=== PATIENT | female | born 1975 | race Caucasian/White ===

== ENCOUNTER 2017-12-08 08:00 | Outpatient (CLI) | payer OTHER | END 2017-12-08 08:01 | disposition home or self-care (01) | LOC: LAB.R 08:00 | PROVIDERS: ATTEND Nurse Practitioner Obstetrics & Gynecology | DX: N89.8 Other specified noninflammatory disorders of vagina (principal) | CPT/HCPCS: 87480; 87510; 87660 ==

== ENCOUNTER 2017-12-29 08:00 | Outpatient (CLI) | payer OTHER | END 2017-12-29 08:01 | disposition home or self-care (01) | LOC: LAB.R 08:00 | PROVIDERS: ATTEND Nurse Practitioner Obstetrics & Gynecology | DX: N76.1 Subacute and chronic vaginitis (principal); N89.8 Other specified noninflammatory disorders of vagina | CPT/HCPCS: 87480; 87491; 87510; 87591; 87660 ==

== ENCOUNTER 2017-12-29 10:28 | Outpatient (CLI) | payer OTHER ==
[2017-12-29 12:08] LABS: HEMOGLOBIN A1C 0.49 g/dL; HEMOGLOBIN A1C % 5.1 % (4.6-6.2)
[2017-12-29 12:30] LABS: THYROID STIMULATING HORMONE 0.74 uIU/mL (0.34-5.60)
[2017-12-29 14:54] LABS: FREE T4 (FREE THYROXINE) 0.76 ng/dL (0.58-1.64)
[2017-12-31 12:26] LABS: THYROGLOBULIN 15.4 ng/mL
== END 2017-12-29 10:29 | disposition home or self-care (01) ==
LOC: LAB 10:28
PROVIDERS: ATTEND Nurse Practitioner Obstetrics & Gynecology
DX: N76.1 Subacute and chronic vaginitis (principal); N89.8 Other specified noninflammatory disorders of vagina; Z13.29 Encounter for screening for other suspected endocrine disorder
CPT/HCPCS: 36415; 81599; 83036; 83519; 84432; 84439; 84443; 86800; 87480; 87491; 87510; 87591; 87660

== ENCOUNTER 2018-01-04 20:57 | Outpatient (CLI) | payer OTHER ==
--- NOTE | 2018-01-05 11:49 | Ultrasound Report ---
THYROID ULTRASOUND: 01/04/2018 HISTORY: Thyroid disorder, not otherwise specified. TECHNIQUE: Real-time scanning by the roving department end finder with saved static images reviewed. COMPARISON: No comparisons. FINDINGS: Right lobe: 4.9 x 1.4 x 1.5 cm, volume 5.2 mL. Left lobe: 5.1 x 1.4 x 1.7 cm, volume 6 mL. Thyroid isthmus: 0.1 cm. The thyroid vascularity is increased and the echotexture is heterogeneous. Multiple small, poorly defined nodules are seen, the largest on the right in the upper pole 4 x 5 x 3 mm, hypoechoic, and in the right lower pole 5 x 4 x 4 mm, isoechoic with a tiny cystic component. On the left, the dominant nodule is in the mid pole, isoechoic 6 x 5 x 6 mm and lower pole, hypoechoic 2 x 3 x 3 mm. No adjacent adenopathy is seen. IMPRESSION: HETEROGENEOUS THYROID ECHOTEXTURE WITH INCREASED VASCULARITY. MULTIPLE SUBCENTIMETER NONSPECIFIC NODULES ARE PRESENT. SUGGEST FOLLOWUP THYROID ULTRASOUND IN ONE YEAR. TD: 01/05/2018 11:36 CHELA
== END 2018-01-04 20:58 | disposition home or self-care (01) ==
LOC: DI 20:57
PROVIDERS: ATTEND Nurse Practitioner Obstetrics & Gynecology
DX: E04.2 Nontoxic multinodular goiter (principal)
CPT/HCPCS: 76536

== ENCOUNTER 2018-01-12 08:00 | Outpatient (CLI) | payer OTHER | END 2018-01-12 08:01 | LOC: LAB.R 08:00 | PROVIDERS: ATTEND Nurse Practitioner Obstetrics & Gynecology | DX: N89.8 Other specified noninflammatory disorders of vagina (principal) | CPT/HCPCS: 87480; 87510; 87660 ==

== ENCOUNTER 2018-01-29 16:29 | Outpatient (CLI) | payer OTHER | END 2018-01-29 16:30 | disposition home or self-care (01) | LOC: LAB 16:29 | PROVIDERS: ATTEND Nurse Practitioner Family | DX: R53.82 Chronic fatigue, unspecified (principal) | CPT/HCPCS: 36415; 84481; 84482 ==

== ENCOUNTER 2019-03-04 | Outpatient (CLI) | payer OTHER | END 2019-03-04 09:48 | disposition home or self-care (01) ==

== ENCOUNTER 2021-02-06 10:46 | Outpatient (CLI) | payer OTHER ==
[2021-02-06 11:02] LABS: BASOPHILS # (AUTO) 0.1 10^3/uL (0.0-0.1); BASOPHILS % (AUTO) 0.9 %; EOSINOPHILS # (AUTO) 0.1 10^3/uL (0.0-0.7); EOSINOPHILS % (AUTO) 1.8 %; HCT - HEMATOCRIT 38.3 % (37.0-47.0); HGB - HEMOGLOBIN 12.5 g/dL (12.0-16.0); LYMPHOCYTES # (AUTO) 1.2 10^3/uL (1.5-3.5); LYMPHOCYTES % (AUTO) 22.2 %; MEAN CORPUSCULAR HEMOGLOBIN 28.7 pg (27.0-31.0); MEAN CORPUSCULAR HGB CONC 32.6 g/dL (32.0-36.0); MEAN PLATELET VOLUME 11.1 fL (7.9-10.8); MONOCYTES # (AUTO) 0.5 10^3/uL (0.0-1.0); MONOCYTES % (AUTO) 8.3 %; NEUTROPHILS # (AUTO) 3.7 10^3/uL (1.5-6.6); NEUTROPHILS % (AUTO) 66.6 %; PLT - PLATELET COUNT 258 10^3/uL (130-450); RED BLOOD COUNT 4.35 10^6/uL (4.20-5.40); RED CELL DISTRIBUTION WIDTH 14.6 % (12.0-15.0); WHITE BLOOD COUNT 5.5 x10^3/uL (4.8-10.8)
[2021-02-06 11:29] LABS: % IRON SATURATION 13 % (20-50); ALBUMIN 4.3 g/dL (3.2-5.5); ALBUMIN/GLOBULIN RATIO 1.5 (1.0-2.2); ALKALINE PHOSPHATASE 59 IU/L (42-121); ALT ALANINE AMINOTRANSFERASE 17 IU/L (10-60); AST ASPARTATE AMINOTRANSFERASE 19 IU/L (10-42); BILIRUBIN,TOTAL 0.7 mg/dL (0.2-1.0); BUN - BLOOD UREA NITROGEN 17 mg/dL (6-20); CARBON DIOXIDE - CO2 26 mmol/L (21-32); CHLORIDE 100 mmol/L (101-111); CHOL/HDL RATIO 2.2 (<4.4); CHOLESTEROL 190 mg/dL; CREATININE 0.7 mg/dL (0.4-1.0); GFR - MDRD 91 (>89); GLUCOSE 146 mg/dL (70-100); HDL CHOLESTEROL 88 mg/dL; IRON 56 ug/dL (28-170); LDL CHOLESTEROL,CALCULATED 87 mg/dL; SODIUM 136 mmol/L (135-145); TOTAL IRON BINDING CAPACITY 427 ug/dL (250-450); TOTAL PROTEIN 7.2 g/dL (6.7-8.2); TRANSFERRIN 305 mg/dL (192-382); TRIGLYCERIDES 74 mg/dL; VLDL CHOLESTEROL 15 mg/dL
[2021-02-06 11:35] LABS: T4 (THYROXINE) 5.97 ug/dL (6.09-12.23)
[2021-02-06 11:39] LABS: THYROID STIMULATING HORMONE 0.79 uIU/mL (0.34-5.60)
== END 2021-02-06 10:47 | disposition home or self-care (01) ==
LOC: LAB 10:46
PROVIDERS: ATTEND Registered Nurse
DX: E03.9 Hypothyroidism, unspecified (principal); Z86.2 Personal history of diseases of the blood and blood-forming organs and certain disorders involving the immune mechanism
CPT/HCPCS: 36415; 80053; 80061; 83540; 83721; 84436; 84443; 84466; 84480; 85025

== ENCOUNTER 2021-05-24 08:00 | Outpatient (CLI) | payer OTHER ==
[2021-05-24 13:10] LABS: CREATINE KINASE MB 1.4 ng/mL (0.6-6.3)
[2021-05-24 13:20] LABS: THYROID STIMULATING HORMONE 0.48 uIU/mL (0.34-5.60)
[2021-05-24 13:43] LABS: TROPONIN I HIGH SENSITIVITY < 2.3 ng/L (2.3-14.8)
== END 2021-05-24 23:59 | disposition home or self-care (01) ==
LOC: LAB.N 08:00
PROVIDERS: ATTEND Family Medicine
DX: R07.89 Other chest pain (principal)
CPT/HCPCS: 36415; 82553; 84443; 84484; 85379

== ENCOUNTER 2021-05-24 09:23 | Outpatient (CLI) | payer OTHER ==
--- NOTE | 2021-05-24 09:39 | XRAY Report ---
PROCEDURE: Chest 2 View X-Ray INDICATIONS: CHEST TIGHTNESS TECHNIQUE: 2 view(s) of the chest. COMPARISON: None. FINDINGS: SUPPORT DEVICES: None. LUNG/PLEURA: No focal consolidation or pulmonary edema. No pleural effusion or space-occupying pneumo thorax. MEDIASTINUM: The cardiomediastinal silhouette is within normal limits. BONES/SOFT TISSUES: No acute abnormality. IMPRESSION: 1.No acute cardiopulmonary abnormality. Reviewed by: Jacob Bee MD on 05/24/2021 9:38 AM PDT Approved by: Jacob Bee MD on 05/24/2021 9:38 AM PDT Station ID: [id number]
== END 2021-05-24 23:59 ==
LOC: DI.N 09:23
PROVIDERS: ATTEND Family Medicine
DX: R07.89 Other chest pain (principal)

== ENCOUNTER 2022-11-12 08:53 | Outpatient (CLI) | payer OTHER ==
[2022-11-12 09:10] LABS: BASOPHILS # (AUTO) 0.1 10^3/uL (0.0-0.1); BASOPHILS % (AUTO) 1.1 %; EOSINOPHILS # (AUTO) 0.1 10^3/uL (0.0-0.7); EOSINOPHILS % (AUTO) 1.7 %; HGB - HEMOGLOBIN 11.6 g/dL (12.0-16.0); LYMPHOCYTES # (AUTO) 1.5 10^3/uL (1.5-3.5); LYMPHOCYTES % (AUTO) 27.7 %; MEAN CORPUSCULAR HEMOGLOBIN 28.9 pg (27.0-31.0); MEAN CORPUSCULAR HGB CONC 32.2 g/dL (32.0-36.0); MEAN CORPUSCULAR VOLUME 89.6 fL (81.0-99.0); MEAN PLATELET VOLUME 10.4 fL (7.9-10.8); MONOCYTES # (AUTO) 0.6 10^3/uL (0.0-1.0); MONOCYTES % (AUTO) 10.1 %; NEUTROPHILS # (AUTO) 3.2 10^3/uL (1.5-6.6); NEUTROPHILS % (AUTO) 59.2 %; PLT - PLATELET COUNT 257 10^3/uL (130-450); RED BLOOD COUNT 4.02 10^6/uL (4.20-5.40); RED CELL DISTRIBUTION WIDTH 13.7 % (12.0-15.0); WHITE BLOOD COUNT 5.4 x10^3/uL (4.8-10.8)
[2022-11-12 09:38] LABS: ALBUMIN 4.2 g/dL (3.2-5.5); ALBUMIN/GLOBULIN RATIO 1.5 (1.0-2.2); ALKALINE PHOSPHATASE 53 IU/L (42-121); ALT ALANINE AMINOTRANSFERASE 15 IU/L (10-60); AST ASPARTATE AMINOTRANSFERASE 17 IU/L (10-42); BILIRUBIN,TOTAL 0.5 mg/dL (0.2-1.0); BUN - BLOOD UREA NITROGEN 13 mg/dL (6-20); CALCIUM 8.8 mg/dL (8.5-10.3); CARBON DIOXIDE - CO2 26 mmol/L (21-32); CHLORIDE 106 mmol/L (101-111); CHOL/HDL RATIO 1.9 (<4.4); CHOLESTEROL 174 mg/dL; CREATININE 0.7 mg/dL (0.4-1.0); GFR - MDRD 90 (>89); GLUCOSE 103 mg/dL (70-100); HDL CHOLESTEROL 92 mg/dL; LDL CHOLESTEROL,CALCULATED 72 mg/dL; LDL/HDL RATIO 0.8 (<4.4); POTASSIUM 4.2 mmol/L (3.5-5.0); SODIUM 138 mmol/L (135-145); TRIGLYCERIDES 48 mg/dL; VLDL CHOLESTEROL 10 mg/dL
[2022-11-12 09:41] LABS: T4 (THYROXINE) 6.31 ug/dL (6.09-12.23)
[2022-11-12 09:45] LABS: THYROID STIMULATING HORMONE 0.72 uIU/mL (0.34-5.60)
== END 2022-11-12 08:54 | disposition home or self-care (01) ==
LOC: LAB 08:53
PROVIDERS: ATTEND Registered Nurse
DX: E03.9 Hypothyroidism, unspecified (principal); Z79.899 Other long term (current) drug therapy; Z13.220 Encounter for screening for lipoid disorders
CPT/HCPCS: 36415; 80053; 80061; 83721; 84436; 84443; 84480; 85025